=== PATIENT | male | born 1950 | race Hispanic/Latino ===

== ENCOUNTER 2021-10-05 19:30 | Emergency (ER) | payer BC ==
[~2021-10-05] VITALS: Ht 165.1 cm; Wt 74.4 kg
[2021-10-05 20:34] LABS: PLATELET COUNT 214 K/uL (142-355)
[2021-10-05 20:38] LABS: POTASSIUM 4.6 mmol/L (3.6-5.2)
[2021-10-05 20:50] LABS: PARTIAL THROMBOPLASTIN TIME 24.6 SECONDS (24.5-33.6)
[2021-10-05 23:00] VITALS: BP 168/72; TEMP 98.5
== END 2021-10-05 23:03 | disposition home or self-care (01) ==
LOC: ED 19:30
PROVIDERS: Family Medicine
DX: I10 Essential (primary) hypertension (principal); R51.9 Headache, unspecified; N18.9 Chronic kidney disease, unspecified; Z98.890 Other specified postprocedural states
CPT/HCPCS: 36415; 80053; 82550; 84484; 85027; 85610; 85730; 93005; 99283

== ENCOUNTER 2021-10-22 08:05 | Outpatient (CLI) | payer BC | END 2021-10-22 18:57 | disposition home or self-care (01) | LOC: CT 08:05 → RESP 09:00 → CT 18:57 | PROVIDERS: ATTEND Nurse Practitioner Family | DX: R07.89 Other chest pain (principal); K43.9 Ventral hernia without obstruction or gangrene | CPT/HCPCS: 36415; 82565; 84520; Q9963 ==

== ENCOUNTER 2021-11-08 09:23 | Outpatient (CLI) | payer BC | END 2021-11-08 18:54 | disposition home or self-care (01) | LOC: US 09:23 | PROVIDERS: ATTEND Nurse Practitioner Family | DX: N18.31 Chronic kidney disease, stage 3a (principal) ==

== ENCOUNTER 2022-04-11 14:44 | Emergency (ER) | payer BC ==
[~2022-04-11] VITALS: Ht 165.1 cm; Wt 74.4 kg
[2022-04-11 15:43] LABS: PLATELET COUNT 198 K/uL (142-355)
[2022-04-11 15:51] LABS: POTASSIUM 4.7 mmol/L (3.6-5.2)
[2022-04-11 19:20] VITALS: BP 139/70; TEMP 98.4
== END 2022-04-11 19:20 | disposition home or self-care (01) ==
LOC: ED 14:44
PROVIDERS: Family Medicine
DX: K52.89 Other specified noninfective gastroenteritis and colitis (principal); N28.9 Disorder of kidney and ureter, unspecified
CPT/HCPCS: 36415; 80053; 81002; 82150; 83605; 83690; 85027; 96360; 96361; 99284